=== PATIENT | female | born 1990 | race Caucasian/White ===

== ENCOUNTER 2018-12-11 10:17 | Day surgery (SDC) | payer OTHER ==
[~2018-12-11] VITALS: Ht 157.5 cm; Wt 44.5 kg
[~2018-12-11 10:17] MED LIST: CLINDAMYCIN 900 MG in APPROPRIATE DILUENT 1 EA IV ONE; LR 1,000 ML IV ONE; ZOLO50TA PO; dexameTHASONE 4 MG/ML 1ML VIAL (J1100) IV ONE
[2018-12-11 11:03] LABS: URINE PREG TEST NEGATIVE (NEGATIVE)
[2018-12-11] MEDS ORDERED: fentaNYL 250 MCG/5 ML INJECTION (J3010) As Ordered ONE (12:01)
[2018-12-11] MEDS ORDERED: PROPOFOL 200 MG/20 ML VIAL As Ordered ONE (12:01)
[2018-12-11] MEDS ORDERED: MIDAZOLAM INJ 2 MG/2 ML VIAL (J2250) As Ordered ONE (12:01)
[2018-12-11] MEDS ORDERED: ROCURONIUM BROMIDE 50 MG/5 ML VIAL As Ordered ONE (12:01)
[2018-12-11] MEDS ORDERED: LIDOCAINE 2% INJ 100 MG/5 ML SDV (FOR ANES.) As Ordered ONE (12:01)
[2018-12-11] MEDS ORDERED: OXYMETAZOLINE NASAL SPRAY (AFRIN) As Ordered ONE (13:02)
[2018-12-11] MEDS ORDERED: LIDOCAINE 2% W/ EPINEPHRINE 1.7 ML DENTAL INJ As Ordered ONE (13:05)
[2018-12-11] MEDS ORDERED: CHLORHEXIDINE GLUCONATE 0.12 % 15ML UDC (PERIDEX ORAL RINSE) As Ordered ONE ×2 (13:05→13:42)
[2018-12-11] MEDS ORDERED: SUGAMMADEX SODIUM 500 MG/5 ML VIAL (BRIDION) As Ordered ONE (13:52)
[2018-12-11] MEDS ORDERED: ACETAMINOPHEN 1000MG 100ML IV BTL (OFIRMEV) (J0131 PER 10MG) As Ordered ONE (13:52)
[2018-12-11] MEDS ORDERED: KETOROLAC 60 MG/2 ML VIAL (J1885) As Ordered ONE (13:52)
[2018-12-11] MEDS ORDERED: ONDANSETRON 4MG/2ML VIAL (J2405) As Ordered ONE (13:52)
[2018-12-11] MEDS ORDERED: METOCLOPRAMIDE INJ 10MG/2ML VIAL (J2765) As Ordered ONE (13:52)
[2018-12-11] MEDS ORDERED: oxyCODONE 5MG TAB As Ordered ONE (15:09)
[2018-12-11] MEDS ORDERED: METOCLOPRAMIDE INJ 10MG/2ML VIAL (J2765) IV PRN (15:15)
[2018-12-11] MEDS ORDERED: LR 1,000 ML IV SCH (15:15)
[2018-12-11] MEDS ORDERED: oxyCODONE 5MG TAB PO PRN (15:15)
[2018-12-11] MEDS ORDERED: fentaNYL 100 MCG/2 ML INJECTION (J3010) IV PRN (15:15)
[2018-12-11] MEDS ORDERED: PROMETHAZINE INJ 25 MG/ML VIAL (J2550) IV PRN (15:15)
[2018-12-11 16:25] VITALS: BP 142/79
--- NOTE | 2018-12-13 11:14 | RO ---
DATE OF PROCEDURE: 12/11/2018 PREOPERATIVE DIAGNOSIS: Grossly decayed teeth numbers 4, 5, 6, 7, 8, 9, 10, 11, 12, 13, 14, 20, 21, 22, 23, 24, 25, 26, 27, 28, 29 and 30, full bony impacted tooth #11. POSTOPERATIVE DIAGNOSIS: Status post the above. PROCEDURE PERFORMED: Surgical extraction of the aforementioned teeth. SURGEON: Wellington Simon DMD CLINIC BUSINESS MANAGER: ANESTHESIA: General endotracheal anesthesia via nasal FLORIDALMA. SPECIMENS: Teeth for gross only. INDICATIONS FOR SURGERY: Malgorzata is a pleasant 28-year-old female who was referred to my office for evaluation for extraction of all her remaining teeth as well as fully impacted tooth #11. Clinical examination revealed that she has significant dental anxiety and was very emotional upon examination. She also has a history of 1.5 packs of cigarettes per day use and also psych issues. Her clinical examination reveals grossly decayed and symptomatic remaining dentition and a full bony impacted #11. I gave the options office based IV conscious sedation versus general anesthesia in an operating room and Malgorzata elected the latter. All the risks, benefits and alternatives were explained to the patient in detail and informed consent was obtained and signed by the patient. DESCRIPTION OF PROCEDURE: The patient presented to preop holding area. Any last minute questions were addressed. The physical and the consent were updated. At that point, the patient was taken back to the operating room. She was laid supine on the operating room table. Ulnar nerve protectors were placed. Noninvasive cardiac monitors were applied. At that point, the patient underwent general anesthesia was intubated with a nasal FLORIDALMA, which was secured to the patient's forehead. Preoperative antibiotics and steroids were administered. A moist throat pack was inserted in the patient's oropharynx followed by the administration of 2% lidocaine with 1:100,000 epinephrine as local infiltrations and blocks. The teeth for very carious therefore any luxation results in crown fractures therefore a full-thickness flap was released in each single tooth area, namely teeth numbers 4, 5, 6, 7, 8, 9, 10, 11, 12, 13, 14, 20, 21, 22, 23, 24, 25, 26, 27, 28, 29 and 30. Buccal bone was removed from teeth numbers 4, 5, 6, 7, 11, 12, 13, 14, 20, 21, 22, 23, 26, 27, 28, 29 and 30. At this point the teeth were luxated with better success and were delivered in their entirety. Once all the teeth were removed, at this point attention was then given to full bony impacted #11 where mesial and distal bone were removed. A crown was noted and a straight elevator was inserted distally and the tooth was luxated and delivered mesially in its entirety. At this point, alveoloplasty was performed in each single quadrant to remove any sharp bony areas and remove any undercuts and this was performed in the upper right, upper left, lower left, and lower right quadrants using rongeurs and Surgairtome. All of the sockets were copiously irrigated and suctioned. No sinus exposure was noted. The alveolar nerve was not noted. Lingual cortices were intact. The flaps were closed primarily with #3-0 chromic sutures in an interrupted and continuous fashion. Gauze hemostasis was easily achieved and observed for over 20 minutes. The oral cavity was then irrigated and suctioned. Throat pack was removed. The patient was awakened from general anesthesia and taken back to the postanesthesia care unit (PACU). COMPLICATIONS: None to mention at time of surgery. ESTIMATED BLOOD LOSS: 20 mL. DRAINS: There were no drains placed.
== END 2018-12-11 16:47 | disposition home or self-care (01) ==
LOC: M SDC 10:17
PROVIDERS: ATTEND Dentist
DX: K02.9 Dental caries, unspecified (principal); K01.1 Impacted teeth; K58.8 Other irritable bowel syndrome; K21.9 Gastro-esophageal reflux disease without esophagitis; Z88.0 Allergy status to penicillin; Z79.899 Other long term (current) drug therapy; F41.9 Anxiety disorder, unspecified; F32.9 Major depressive disorder, single episode, unspecified; F17.210 Nicotine dependence, cigarettes, uncomplicated
CPT/HCPCS: 84703; 88300; D7210; D7240; D9223; J0131; J1100; J1885; J2250; J2405; J2765; J3010